=== PATIENT | female | born 1995 | race Caucasian/White ===

== ENCOUNTER 2016-08-03 15:49 | Emergency (ER) | payer SELFPAY ==
[2016-08-03 16:05] VITALS: BP 116/74
[2016-08-03] MEDS ORDERED: Sodium Chloride 0.9% 10 ML Syringe FLUSH PRN (16:23)
[2016-08-03] MEDS ORDERED: Sodium Chloride 0.9% 1,000 ML IV ONE (17:08)
[2016-08-03] MEDS ORDERED: HYDROmorphone 0.5 MG/0.5 ML Syringe IVPUSH ONE (17:27)
[2016-08-03] MEDS ORDERED: Ondansetron 4 MG/2 ML SDV IVPUSH ONE (17:27)
[2016-08-03] MEDS ORDERED: diphenhydrAMINE 50 MG/ML SDV IVPUSH ONE (17:54)
[2016-08-03] MEDS ORDERED: methylPREDNISolone Sodium Succinate 125 MG/2 ML SDV IVPUSH ONE (17:55)
[2016-08-03] MEDS ORDERED: diphenhydrAMINE 50 MG/ML SDV ONE (17:57)
--- NOTE | 2016-08-03 18:25 | EDM.PDOC ---
ED HPI GENERAL MEDICAL PROBLEM - General Chief Complaint: Respiratory Problem Stated Complaint: SOB Time Seen by Provider: 08/03/16 16:05 Source of Information: Reports: Patient, Family History Limitations: Reports: No Limitations - History of Present Illness INITIAL COMMENTS - FREE TEXT/NARRATIVE: The patient presents with chest pain and shortness of breath. She says this all started about 1 week ago. She has a dental infection. She saw her dentist and was put on amoxicillin. She did not start it yet because of financial issues. She has chills but no fever. She has some nausea but no vomiting My nurse says she was hyperventilating when she was talking to her and she had to talk her down. She has no history of DVTs or PEs. She has had trouble with the tooth in the left upper jaw before and amoxicillin helped. Onset: Gradual Duration: Week(s): (1) Location: Reports: Face, Chest Quality: Reports: Sharp Severity: Moderate Improves with: Reports: None Worsens with: Reports: None Associated Symptoms: Reports: Chest Pain, Fever/Chills, Nausea/Vomiting, Shortness of Breath. Denies: Cough Chest Pain Score (Numeric/FACES): 8 - Related Data Allergies Allergy/AdvReac Type Severity Reaction Status Date / Time hydromorphone [From Dilaudid] Allergy Shortness Verified 08/03/16 16:05 of Breath Home Meds: Home Meds Hydrocodone/Acetaminophen [Hydrocodon-Acetaminophen 5-325] 1 - 2 each PO Q6HR PRN #20 tablet 08/03/16 [Rx] Penicillin V Potassium 500 mg PO Q6HR #40 tab 08/03/16 [Rx] Past Medical History - Past Health History Medical/Surgical History: Denies Medical/Surgical History Social & Family History - Tobacco Use Smoking Status *Q: Current Every Day Smoker Years of Tobacco use: 5 Packs/Tins Daily: 0.2 - Caffeine Use Caffeine Use: Reports: None - Recreational Drug Use Recreational Drug Use: No ED ROS GENERAL - Review of Systems Review Of Systems: See Below Constitutional: Reports: Chills, Weakness. Denies: Fever HEENT: Reports: Dental Pain Respiratory: Reports: Shortness of Breath. Denies: Cough Cardiovascular: Reports: Chest Pain Endocrine: Reports: No Symptoms GI/Abdominal: Reports: No Symptoms : Reports: No Symptoms Musculoskeletal: Reports: No Symptoms Skin: Reports: No Symptoms ED EXAM, GENERAL - Physical Exam Exam: See Below Exam Limited By: No Limitations General Appearance: Alert, No Apparent Distress Ears: Normal External Exam Nose: Normal Inspection Throat/Mouth: Other (Pain upon palpation to the left upper jaw line. She has a fractured premolar in that area with erythema and edema.) Head: Atraumatic, Normocephalic Neck: Normal Inspection Respiratory/Chest: No Respiratory Distress, Lungs Clear, Normal Breath Sounds Cardiovascular: Regular Rate, Rhythm, No Edema, No Murmur GI/Abdominal: Soft, Non-Tender, No Organomegaly, No Mass Back Exam: Normal Inspection Extremities: Normal Inspection Neurological: Alert, Oriented, No Motor/Sensory Deficits EKG INTERPRETATION EKG Date: 08/03/16 Time: 16:31 Rhythm: NSR Rate (beats/min): 88 [place]: normal P-wave: present QRS: normal ST-T: normal QT: normal Course - Vital Signs Last Recorded V/S: Last Vital Signs Temp 98.7 F 08/03/16 16:02 Pulse 91 08/03/16 16:02 Resp 26 H 08/03/16 16:02 BP 116/74 08/03/16 16:02 Pulse Ox 99 08/03/16 16:02 Orthostatic Blood Pressure [ 108/78 Standing] Orthostatic Blood Pressure [ 116/92 Sitting] Orthostatic Blood Pressure [ 114/69 Supine] - Orders/Labs/Meds Orders: Active Orders 24 hr Category Date Time Status Cardiac Monitoring [RC] . DIRECTED Care 08/03/16 16:23 Active EKG Documentation Completion [RC] STAT Care 08/03/16 16:23 Active Peripheral IV Care [RC] . DIRECTED Care 08/03/16 16:23 Active Chest 2V [CR] Stat Exams 08/03/16 16:23 Taken Sodium Chloride 0.9% [Saline Flush] Med 08/03/16 16:23 Active 10 ml FLUSH ASDIRECTED PRN cefTRIAXone [Rocephin] 2 gm Med 08/03/16 18:50 Active Sodium Chloride 0.9% [Normal Saline] 100 ml IV ONETIME Peripheral IV Insertion Adult [OM.PC] Stat Oth 08/03/16 16:23 Ordered Medication Orders Ceftriaxone Sodium 2 gm/ (Sodium Chloride) 100 mls @ 200 mls/hr IV ONETIME ONE Stop: 08/03/16 19:19 Sodium Chloride (Saline Flush) 10 ml FLUSH ASDIRECTED PRN PRN Reason: Keep Vein Open Last Admin: 08/03/16 17:24 Dose: 10 ml Labs: Laboratory Tests 08/03/16 08/03/16 08/03/16 Range/Units 16:36 16:36 16:36 WBC 8.60 (3.98-10.04) K/mm3 RBC 4.44 (3.98-5.22) M/mm3 Hgb 13.8 (11.2-15.7) gm/L Hct 40.9 (34.1-44.9) % MCV 92.1 (79.4-94.8) fl MCH 31.1 (25.6-32.2) pg MCHC 33.7 (32.2-35.5) g/dl RDW Std Deviation 45.8 (36.4-46.3) fL Plt Count 275 (182-369) K/mm3 MPV 9.8 (9.4-12.3) fl Neut % (Auto) 66.2 (34.0-71.1) % Lymph % (Auto) 24.3 (19.3-51.7) % Mower % (Auto) 7.1 (4.7-12.5) % Eos % (Auto) 2.1 (0.7-5.8) Baso % (Auto) 0.2 (0.1-1.2) % Neut # (Auto) 5.69 (1.56-6.13) K/mm3 Lymph # (Auto) 2.09 (1.18-3.74) K/mm3 Mower # (Auto) 0.61 H (0.24-0.36) K/mm3 Eos # (Auto) 0.18 (0.04-0.36) K/mm3 Baso # (Auto) 0.02 (0.01-0.08) K/mm3 D-Dimer, Quantitative 0.24 (0.19-0.59) mg/L Sodium 145 (136-145) mEq/L Potassium 3.9 (3.5-5.1) mEq/L Chloride 107 (98-107) mEq/L Carbon Dioxide 25 (21-32) mEq/L Anion Gap 16.9 H (5-15) BUN 10 (7-18) mg/dL Creatinine 0.8 (0.55-1.02) mg/dL Est Cr Clr Drug Dosing 79.90 mL/min Estimated GFR (MDRD) > 60 (>60) mL/min BUN/Creatinine Ratio 12.5 L (14-18) Glucose 114 H (74-106) mg/dL Calcium 9.6 (8.5-10.1) mg/dL Total Bilirubin 0.3 (0.2-1.0) mg/dL AST 13 L (15-37) U/L ALT 25 (14-59) U/L Alkaline Phosphatase 91 (46-116) U/L Troponin I < 0.017 (0.00-0.056) ng/mL Total Protein 7.9 (6.4-8.2) g/dl Albumin 4.3 (3.4-5.0) g/dl Globulin 3.6 gm/dL Albumin/Globulin Ratio 1.2 (1-2) HCG, Qual (NEGATIVE) 08/03/16 Range/Units 16:36 WBC (3.98-10.04) K/mm3 RBC (3.98-5.22) M/mm3 Hgb (11.2-15.7) gm/L Hct (34.1-44.9) % MCV (79.4-94.8) fl MCH (25.6-32.2) pg MCHC (32.2-35.5) g/dl RDW Std Deviation (36.4-46.3) fL Plt Count (182-369) K/mm3 MPV (9.4-12.3) fl Neut % (Auto) (34.0-71.1) % Lymph % (Auto) (19.3-51.7) % Mower % (Auto) (4.7-12.5) % Eos % (Auto) (0.7-5.8) Baso % (Auto) (0.1-1.2) % Neut # (Auto) (1.56-6.13) K/mm3 Lymph # (Auto) (1.18-3.74) K/mm3 Mower # (Auto) (0.24-0.36) K/mm3 Eos # (Auto) (0.04-0.36) K/mm3 Baso # (Auto) (0.01-0.08) K/mm3 D-Dimer, Quantitative (0.19-0.59) mg/L Sodium (136-145) mEq/L Potassium (3.5-5.1) mEq/L Chloride (98-107) mEq/L Carbon Dioxide (21-32) mEq/L Anion Gap (5-15) BUN (7-18) mg/dL Creatinine (0.55-1.02) mg/dL Est Cr Clr Drug Dosing mL/min Estimated GFR (MDRD) (>60) mL/min BUN/Creatinine Ratio (14-18) Glucose (74-106) mg/dL Calcium (8.5-10.1) mg/dL Total Bilirubin (0.2-1.0) mg/dL AST (15-37) U/L ALT (14-59) U/L Alkaline Phosphatase (46-116) U/L Troponin I (0.00-0.056) ng/mL Total Protein (6.4-8.2) g/dl Albumin (3.4-5.0) g/dl Globulin gm/dL Albumin/Globulin Ratio (1-2) HCG, Qual Negative (NEGATIVE) Meds: Medications Generic Name Dose Route Start Last Admin Trade Name Freq PRN Reason Stop Dose Admin Ceftriaxone Sodium 2 gm/ 100 mls @ 200 mls/hr 08/03/16 18:50 Sodium Chloride IV 08/03/16 19:19 ONETIME ONE Sodium Chloride 10 ml 08/03/16 16:23 08/03/16 17:24 Saline Flush FLUSH 10 ml ASDIRECTED PRN Administration Keep Vein Open Discontinued Medications Generic Name Dose Route Start Last Admin Trade Name Freq PRN Reason Stop Dose Admin Diphenhydramine HCl 50 mg 08/03/16 17:54 08/03/16 17:55 Benadryl IVPUSH 08/03/16 17:55 50 mg ONETIME ONE Administration Diphenhydramine HCl Confirm 08/03/16 17:57 08/03/16 18:12 Benadryl Administered 08/03/16 17:58 Not Given Dose 100 mg .ROUTE .STK-MED ONE Fentanyl 100 mcg 08/03/16 18:51 Sublimaze IVPUSH 08/03/16 18:52 ONETIME ONE Hydromorphone HCl 0.5 mg 08/03/16 17:27 08/03/16 17:52 Dilaudid IVPUSH 08/03/16 17:28 0.5 mg ONETIME ONE Administration Sodium Chloride 1,000 mls @ 1,000 mls/hr 08/03/16 17:08 08/03/16 17:24 Normal Saline IV 08/03/16 18:07 1,000 mls/hr ONETIME ONE Administration Methylprednisolone Sodium Succinate 125 mg 08/03/16 17:55 08/03/16 18:00 Solu-Medrol IVPUSH 08/03/16 17:56 125 mg ONETIME ONE Administration Ondansetron HCl 4 mg 08/03/16 17:27 08/03/16 17:50 Zofran IVPUSH 08/03/16 17:28 4 mg ONETIME ONE Administration - Re-Assessments/Exams Free Text/Narrative Re-Assessment/Exam: 08/03/16 18:28 I ordered an IV saline lock, EKG, CXR and labs. The patient wanted something for pain and nausea. I ordered zofran 4 mg IV and dilaudid 1mg IV. I did not see that the patient was allergic to dilaudid. She became more short of breath with it so I ordered some benadryl 50mg IV and solu-medrol 125mg IV. Her CBC and CMP look good. Her troponin is negative along with her HCG and D-dimer. She is feeling better now. Her CXR looks good. 08/03/16 18:54 I feel what is going on may be related to her dental abscess. I have ordered rocephin 2 grams IV and some fentanyl for pain. She has no money for the amoxicillin she was prescribed or for the pain meds. We will try to get her some money to help. Departure - Departure Time of Disposition: 19:00 Disposition: Home, Self-Care 01 Condition: good Clinical Impression: Dental abscess, Pain, dental Chest pain Qualifiers: Chest pain type: unspecified Qualified Code(s): R07.9 - Chest pain, unspecified Dyspnea Qualifiers: Dyspnea type: unspecified Qualified Code(s): R06.00 - Dyspnea, unspecified - Discharge Information Prescriptions: Hydrocodone/Acetaminophen [Hydrocodon-Acetaminophen 5-325] 1 - 2 each PO Q6HR PRN #20 tablet PRN Reason: Pain Penicillin V Potassium 500 mg PO Q6HR #40 tab Forms: ED Department Discharge Additional Instructions: Take the medications as prescribed. Please return if you are worse. - My Orders Last 24 Hours: My Active Orders 08/03/16 16:23 Cardiac Monitoring [RC] . DIRECTED EKG Documentation Completion [RC] STAT Peripheral IV Care [RC] . DIRECTED Chest 2V [CR] Stat Sodium Chloride 0.9% [Saline Flush] 10 ml FLUSH ASDIRECTED PRN Peripheral IV Insertion Adult [OM.PC] Stat 08/03/16 18:50 cefTRIAXone [Rocephin] 2 gm Sodium Chloride 0.9% [Normal Saline] 100 ml IV ONETIME - Assessment/Plan Last 24 Hours: My Active Orders 08/03/16 16:23 Cardiac Monitoring [RC] . DIRECTED EKG Documentation Completion [RC] STAT Peripheral IV Care [RC] . DIRECTED Chest 2V [CR] Stat Sodium Chloride 0.9% [Saline Flush] 10 ml FLUSH ASDIRECTED PRN Peripheral IV Insertion Adult [OM.PC] Stat 08/03/16 18:50 cefTRIAXone [Rocephin] 2 gm Sodium Chloride 0.9% [Normal Saline] 100 ml IV ONETIME
[2016-08-03] MEDS ORDERED: cefTRIAXone 2 GM in Sodium Chloride 0.9% 100 ML IV ONE (18:50)
[2016-08-03] MEDS ORDERED: fentaNYL 100 MCG/2 ML SDV IVPUSH ONE (18:51)
--- NOTE | 2016-08-04 12:56 | CR ---
Chest: Two views of the chest were obtained. Comparison: No previous chest x-ray. Heart size and mediastinum are normal. Lungs are clear. Minimal scoliosis is noted within the spine. Impression: 1. Nothing acute is identified on two-view chest x-ray. Diagnostic code #1
== END 2016-08-03 19:48 | disposition home or self-care (01) ==
LOC: JD.ED 15:49
DX: R06.00 Dyspnea, unspecified (principal); R07.9 Chest pain, unspecified; K04.7 Periapical abscess without sinus; F17.210 Nicotine dependence, cigarettes, uncomplicated; Z88.5 Allergy status to narcotic agent
CPT/HCPCS: 36415; 71020; 80053; 84484; 84703; 85025; 85379; 93005; 96361; 96365; 96375; 99285; J0696; J1170; J1200; J2405; J2930; J3010; J7030; J7040; J7050; 99284

== ENCOUNTER 2017-01-01 09:59 | Emergency (ER) | payer BC ==
[2017-01-01 10:10] VITALS: BP 122/80
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
[2017-01-01] MEDS ORDERED: Acetaminophen 325 MG Tab PO ONE (11:41)
--- NOTE | 2017-01-01 11:52 | US ---
Obstetrical ultrasound: Multiple real-time images were obtained transvaginally. Comparison: No prior study is available. Dates: LMP: LMP given as 11/22/16, DARBY 08/29/17, gestational age 5 weeks 5 days Current ultrasound: DARBY 09/01/17, gestational age 5 weeks 2 days Single intrauterine gestational sac is seen. Yolk sac and very small pole is identified. No subchorionic hemorrhage is seen. Maternal ovaries are seen and appear within normal limits. There is some free fluid being seen within the pelvis which is likely physiologic. Dates: Mean sac diameter: 0.74 cm - 5 weeks 2 days Impression: 1. Single intrauterine gestation. Dates as noted above. 2. No heart activity is seen which likely relates to early gestational age of the . Follow-up could be considered in 11 days to confirm normal developing embryo. 3. Small amount of free fluid within the pelvis believed to be physiologic. Diagnostic code #2
== END 2017-01-01 12:25 | disposition home or self-care (01) ==
LOC: JD.ED 09:59
DX: O99.89 Other specified diseases and conditions complicating pregnancy, childbirth and the puerperium (principal); R10.84 Generalized abdominal pain; F32.9 Major depressive disorder, single episode, unspecified; F17.210 Nicotine dependence, cigarettes, uncomplicated; Z79.899 Other long term (current) drug therapy; Z88.5 Allergy status to narcotic agent; Z3A.01 Less than 8 weeks gestation of pregnancy
CPT/HCPCS: 36415; 76817; 80053; 81001; 84702; 84703; 85025; 86900; 86901; 99284; A9270; 99283

== ENCOUNTER 2017-02-16 17:57 | Emergency (ER) | payer BC, OTHER ==
--- NOTE | 2017-02-16 18:10 | EDM.PDOC ---
ED HPI GENERAL MEDICAL PROBLEM - General Chief Complaint: ENT Problem Stated Complaint: ABCESS ON ROOF OF MOUTH Time Seen by Provider: 02/16/17 18:10 Source of Information: Reports: Patient - History of Present Illness INITIAL COMMENTS - FREE TEXT/NARRATIVE: Patient is here today due to pain and swelling to the roof of her mouth. She states that she now she has broken teeth on the side, she is currently 12 weeks so dentist will not remove this tooth. Patient reports significant pain and is having difficulty eating and sleeping. Patient does have history of Dilaudid allergy, has taken hydrocodone in the past without difficulty. Oral/Mouth Pain Score (Numeric/FACES): 9 - Related Data Allergies Allergy/AdvReac Type Severity Reaction Status Date / Time hydromorphone [From Dilaudid] Allergy Shortness Verified 01/01/17 10:10 of Breath Home Meds: Home Meds Acetaminophen/Diphenhydramine [Tylenol Pm Ex-Strength Caplet] 1 tab PO BEDTIME 01/01/17 [History] Amoxicillin/Clavulanate K [Augmentin 875 MG/125 MG] 1 tab PO Q12HR #20 tablet [Rx] Iron 50 mg PO DAILY 02/16/17 [History] Lidocaine 2% [Xylocaine 2% Viscous] 5 ml PO ASDIRECTED PRN #100 ml 02/16/17 [Rx] PNV95/Ferrous Fumarate/FA [ Tablet] 1 tab PO DAILY 02/16/17 [History] oxyCODONE 5 mg PO Q8H PRN #10 tablet 02/16/17 [Rx] Past Medical History - Past Health History Medical/Surgical History: Denies Medical/Surgical History Genitourinary History: Reports: Other (See Below) Other Genitourinary History: "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 Denies: Fever, Chills HEENT: Reports: Other (Dental pain, swelling to roof of her mouth. ) Respiratory: Reports: No Symptoms Cardiovascular: Reports: No Symptoms Skin: Reports: No Symptoms Psychiatric: Reports: Anxiety ED EXAM, ENT - Physical Exam Exam: See Below Exam Limited By: No Limitations General Appearance: Alert, WD/WN, Anxious Mouth/Throat: Dental Abcess (Swelling to left posterior inner gumline. This is not fluctuant. ), Dental Pain, Dental Tenderness, Gum Swelling, Other (Very poor dentition, multiple caries and fillings. Teeth #13/14 broken. ). No: Dental Trauma Neck: Normal Inspection. No: Lymphadenopathy (L), Lymphadenopathy (R) Respiratory/Chest: No Respiratory Distress, Lungs Clear, Normal Breath Sounds, No Accessory Muscle Use Cardiovascular: Normal Peripheral Pulses, Regular Rate, Rhythm, No Murmur Neurological: Alert, Oriented Psychiatric: Normal Affect, Anxious Skin: Warm, Dry Course - Vital Signs Last Recorded V/S: Last Vital Signs Temp 97.1 F 02/16/17 18:08 Pulse 115 H 02/16/17 18:08 Resp 20 02/16/17 18:08 BP 122/108 H 02/16/17 18:08 Pulse Ox 100 02/16/17 18:08 - Orders/Labs/Meds Meds: Medications Discontinued Medications Generic Name Dose Route Start Last Admin Trade Name Franciscoq PRN Reason Stop Dose Admin Ceftriaxone Sodium 1 gm 02/16/17 18:25 02/16/17 18:43 Rocephin IM 02/16/17 18:26 1 gm ONETIME ONE Administration Oxycodone/Acetaminophen 1 tab 02/16/17 18:34 02/16/17 18:45 Percocet 325-5 Mg PO 02/16/17 18:35 1 tab ONETIME ONE Administration - Re-Assessments/Exams Free Text/Narrative Re-Assessment/Exam: Obvious dental abscess adjacent to broken teeth. This is very firm, do not feel there is a fluid collection to drain at this point. Patient unable to purchase PO antibiotics tonight due to finances, will give Rocephin injection. Patient 12 weeks and allergic to dilaudid. 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 She is requesting pain medication. Options discussed with Dr Pierre Oliver, will give 5mg PO oxycodone and monitor. 02/16/17 18:53 Patient having good improvement in pain with oxycodone, no side effect from this. She is requesting to be discharged. Will monitor for a few more minutes (total of 45 from when she had the medication) and if still not having side effect will discharge. Will discharge with Augmentin that she will pickle pumper tomorrow as well as just a few oxycodone. Trial lidocaine for pain as well. As she is in second trimester can also use ibuprofen as needed for pain. She will FU next week with dentist/PCP or return to ER if needed. 02/16/17 19:23 Departure - Departure Time of Disposition: 19:36 Disposition: Home, Self-Care 01 Condition: Good Clinical Impression: Dental abscess - Discharge Information Prescriptions: Amoxicillin/Clavulanate K [Augmentin 875 MG/125 MG] 1 tab PO Q12HR #20 tablet Lidocaine 2% [Xylocaine 2% Viscous] 5 ml PO ASDIRECTED PRN #100 ml PRN Reason: Pain oxyCODONE 5 mg PO Q8H PRN #10 tablet PRN Reason: Pain Referrals: Deepali Cee MD [Primary Care Provider] - Forms: ED Department Discharge Additional Instructions: Take full course of antibiotics, recommend probiotic or 2 yogurts daily with this to prevent diarrhea. Ibuprofen 800mg TID. Oxycodone for breakthrough pain. Follow-up with your dentist next week or PCP if this isn't possible. Certainly return to ER if needed.
[2017-02-16] MEDS ORDERED: cefTRIAXone 1 GM Vial IM ONE (18:25)
[2017-02-16] MEDS ORDERED: Acetaminophen/oxyCODONE 325-5 MG Tab PO ONE (18:34)
[2017-02-16 19:43] VITALS: BP 114/79
== END 2017-02-16 20:10 | disposition home or self-care (01) ==
LOC: JD.ED 17:57
DX: K04.7 Periapical abscess without sinus (principal); Z88.6 Allergy status to analgesic agent; Z79.899 Other long term (current) drug therapy; F17.210 Nicotine dependence, cigarettes, uncomplicated
CPT/HCPCS: 96372; 99283; A9270; J0696

== ENCOUNTER 2017-08-06 12:16 | Inpatient (IN) | payer BC ==
[2017-08-06] MEDS ORDERED: Benzocaine/Menthol 20%-0.5% Spray 56 GM Canister TOP PRN (12:25)
[2017-08-06] MEDS ORDERED: Witch Hazel Medicated Pads 100/Jar TOP PRN (12:25)
[2017-08-06] MEDS ORDERED: Docusate Sodium 100 MG Cap PO PRN (12:25)
[2017-08-06] MEDS ORDERED: Lanolin 100% Cream 7 GM Tube TOP PRN (12:25)
[2017-08-06] MEDS ORDERED: Oxytocin/Lactated Ringers 10 UNIT/1,000 ML BAG IV SCH (12:30)
--- NOTE | 2017-08-06 12:30 | PCM.LDHP ---
L&D History of Present Illness - General Date of Service: 08/06/17 Admit Problem/Dx: Patient Status Order with Admit Dx/Problem 08/06/17 12:27 Patient Status [ADT] Routine Admission Diagnosis/Problem Admission Diagnosis/Problem Vaginal delivery Source of Information: Patient History Limitations: Reports: No Limitations - History of Present Illness Introduction:: Patient is a 21 y/o G6 now P1323 PPD#0 from at 36 0/7 wks. Patient has been admitted multiple times for concerns of contractions. This morning felt contractions really started to strengthen. Called for ambulance assistance from [facility] at 1112 [place] time. Was en route to [facility] when delivery occurred at 1131 with ambulance crew assisting. Placenta reportedly delivered within about 5 minutes. [facility] ambulance intercepted by [facility] ambulance crew at about 1142. Both units then made way to [facility]. She is currently doing well. Having some cramping. No other complaints. 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 2012 - 35 wk PTL. 2012 - . 2014 - 38 wk . 2016 - . 2018 - 36 wk Psychiatric History: Reports: Addiction, Anxiety, Depression - Past Surgical History Female Surgical History: Reports: D&C Social & Family History - Family History Family Medical History: Noncontributory - Tobacco Use Smoking Status *Q: Current Every Day Smoker - Caffeine Use Caffeine Use: Reports: Coffee, Soda, Tea Caffeine Use Comment: Coffee daily, soda every other day, tea sometimes. 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.) Occupation: Unemployed H&P Review of Systems - Review of Systems: Review Of Systems: See Below General: Reports: No Symptoms Cardiovascular: Reports: No Symptoms Gastrointestinal: Reports: No Symptoms Genitourinary: Reports: No Symptoms Musculoskeletal: Reports: No Symptoms Psychiatric: Reports: No Symptoms Neurological: Reports: No Symptoms L&D Exam - Exam Exam: See Below - Exam General: Alert, Oriented, Cooperative Lungs: Clear to Auscultation, Normal Respiratory Effort Cardiovascular: Regular Rate, Regular Rhythm GI/Abdominal Exam: Soft, Non-Tender Genitourinary: Normal external exam Extremities: Normal Inspection - Problem List (1) 36 weeks gestation of SNOMED Code(s): 39128174 ICD Code: Z3A.36 - 36 WEEKS GESTATION OF Status: Acute Current Visit: Yes (2) delivery SNOMED Code(s): 683952128, 839679902 ICD Code: O60.10X0 - LABOR W DELIVERY, UNSP TRIMESTER, UNSP Status: Acute Current Visit: Yes Problem List Initiated/Reviewed/Updated: Yes Orders Last 24hrs: Active Orders 24 hr Category Date Time Status Patient Status [ADT] Routine ADT 08/06/17 12:27 Ordered Activity as Tolerated [RC] PER UNIT ROUTINE Care 08/06/17 12:27 Ordered Vital Signs [RC] ASDIRECTED Care 08/06/17 12:27 Ordered Regular Diet [DIET] Diet 08/06/17 Lunch Ordered RAPID PLASMA REAGIN,RPR [CHEM] Routine Lab 08/06/17 12:25 Ordered Benzocaine/Menthol [Dermoplast Pain Relief [place]] Med 08/06/17 12:25 Ordered See Dose Instructions TOP ASDIRECTED PRN Docusate Sodium [Colace] Med 08/06/17 12:25 Ordered 100 mg PO BID PRN Lanolin [Lansinoh HPA] Med 08/06/17 12:25 Ordered See Dose Instructions TOP ASDIRECTED PRN Oxytocin/Lactated Ringers [Pitocin in LR 10 Units/1,000 Med 08/06/17 12:30 Ordered ML] 10 unit in 1,000 ml IV TITRATE Witch Celi [Tucks] Med 08/06/17 12:25 Ordered 1 pad TOP ASDIRECTED PRN Assess Lochia [WOMSER] Per Unit Routine Oth 08/06/17 12:27 Ordered Assess Uterine Involution [WOMSER] Per Unit Routine Oth 08/06/17 12:27 Ordered Breast Pump [WOMSER] Per Unit Routine Oth 08/06/17 12:27 Ordered Heat Therapy [OM.PC] PRN Oth 08/06/17 12:30 Ordered Heat Therapy [OM.PC] PRN Oth 08/07/17 12:30 Ordered Ice Therapy [OM.PC] Per Unit Routine Oth 08/06/17 12:28 Ordered Perineal Care [OM.PC] Per Unit Routine Oth 08/06/17 12:27 Ordered Peripheral IV Discontinue [OM.PC] Routine Oth 08/06/17 12:28 Ordered Sitz Bath [OM.PC] Per Unit Routine Oth 08/06/17 12:27 Ordered Resuscitation Status Routine Resus Stat 08/06/17 12:25 Ordered Assessment/Plan Comment:: 21 y/o G6 now P1323 PPD#0 from at 36 0/7 wks * Last note from [facility] shows patient with signs of gestational HTN. Will order baseline labs here today * RPR per new protocol for repeat testing at time of delivery * Routine cares * Discharge home in 2 days
[2017-08-06] MEDS ORDERED: Oxytocin/Lactated Ringers 20 UNIT/1,000 ML BAG IV ONE (12:33)
[2017-08-06] MEDS: Ibuprofen 600 MG Tab PO PRN (13:00)
--- NOTE | 2017-08-07 07:02 | PCM.PNPP ---
- General Info Date of Service: 08/07/17 Functional Status: Reports: Pain Controlled, Tolerating Diet, Ambulating, Urinating - Review of Systems General: Reports: No Symptoms Pulmonary: Reports: No Symptoms Cardiovascular: Reports: No Symptoms Gastrointestinal: Reports: No Symptoms Genitourinary: Reports: No Symptoms Musculoskeletal: Reports: No Symptoms Neurological: Reports: No Symptoms - Patient Data Vital Signs - Most Recent: Last Vital Signs Temp 36.7 C 08/06/17 21:25 Pulse 100 08/06/17 21:25 Resp 16 08/06/17 17:17 BP 142/85 H 08/06/17 21:25 Pulse Ox 98 08/06/17 21:25 Weight - Most Recent: 78.471 kg I&O - Last 24 Hours: Intake & Output 08/06/17 08/07/17 08/07/17 22:59 06:59 14:59 Intake Total 1800 Balance 1800 Lab Results - Last 24 Hours: Laboratory Results - last 24 hr 08/06/17 08/06/17 08/06/17 Range/Units 13:13 13:13 13:13 WBC 17.75 H (3.98-10.04) K/mm3 RBC 3.34 L (3.98-5.22) M/mm3 Hgb 11.1 L (11.2-15.7) gm/L Hct 33.6 L (34.1-44.9) % MCV 100.6 H (79.4-94.8) fl MCH 33.2 H (25.6-32.2) pg MCHC 33.0 (32.2-35.5) g/dl RDW Std Deviation 53.1 H (36.4-46.3) fL Plt Count 281 (182-369) K/mm3 MPV 9.4 (9.4-12.3) fl Creatinine 0.7 (0.55-1.02) mg/dL Est Cr Clr Drug Dosing 90.55 mL/min Estimated GFR (MDRD) > 60 (>60) mL/min AST 12 L (15-37) U/L ALT 9 L (14-59) U/L RPR Non-reactive (NONREACTIVE) Med Orders - Current: Current Medications Benzocaine/Menthol (Dermoplast Pain Relief [place]) 0 gm TOP ASDIRECTED PRN PRN Reason: Perineal Comfort Measure Docusate Sodium (Colace) 100 mg PO BID PRN PRN Reason: Constipation Emollient Ointment (Lansinoh Hpa) 0 gm TOP ASDIRECTED PRN PRN Reason: Sore Nipples Oxytocin/Lactated Ringer's (Pitocin In Lr 10 Units/1,000 Ml) 10 unit in 1,000 mls @ 500 mls/hr IV TITRATE SARBJIT; Protocol Ibuprofen (Motrin) 600 mg PO Q6H PRN PRN Reason: Pain Last Admin: 08/06/17 13:00 Dose: 600 mg Witch Celi (Tucks) 1 pad TOP ASDIRECTED PRN PRN Reason: Hemorrhoid pain Discontinued Medications Oxytocin/Lactated Ringer's (Pitocin In Lr 20 Units/1,000 Ml) Confirm Administered Dose 20 unit in 1,000 mls @ as directed IV .STK-MED ONE Stop: 08/06/17 12:34 Last Admin: 08/06/17 12:36 Dose: 500 mls/hr - Infant Interaction Infant Disposition, : [place] in Room with Family Interaction: Holding Infant Infant Feeding: Attempted ; Nursed Fair/Poor Support Person: - Recovery Exam Fundal Tone: Firm Fundal Level: At Umbilicus Fundal Placement: Midline Lochia Amount: Scant Lochia Color: Rubra/Red Perineum Description: Intact, Minimal Bruising/Swelling Episiotomy/Laceration: Approximated Bladder Status: Voiding Urinary Elimination: Voided - Exam General: Alert, Oriented, Cooperative GI/Abdominal Exam: Soft, Non-Tender Extremities: Normal Inspection Skin: Warm, Dry, Intact - Problem List & Annotations (1) 36 weeks gestation of SNOMED Code(s): 07119429 Code(s): Z3A.36 - 36 WEEKS GESTATION OF Status: Acute Current Visit: Yes (2) delivery SNOMED Code(s): 711401365, 894311713 Code(s): O60.10X0 - LABOR W DELIVERY, UNSP TRIMESTER, UNSP Status: Acute Current Visit: Yes - Problem List Review Problem List Initiated/Reviewed/Updated: Yes - My Orders Last 24 Hours: My Active Orders 08/06/17 12:25 Benzocaine/Menthol [Dermoplast Pain Relief [place]] See Dose Instructions TOP ASDIRECTED PRN Docusate Sodium [Colace] 100 mg PO BID PRN Lanolin [Lansinoh HPA] See Dose Instructions TOP ASDIRECTED PRN Witch Celi [Tucks] 1 pad TOP ASDIRECTED PRN Resuscitation Status Routine 08/06/17 12:27 Patient Status [ADT] Routine Activity as Tolerated [RC] PER UNIT ROUTINE Vital Signs [RC] 03,09,15,21 Assess Lochia [WOMSER] Per Unit Routine Assess Uterine Involution [WOMSER] Per Unit Routine Breast Pump [WOMSER] Per Unit Routine Perineal Care [OM.PC] Per Unit Routine Sitz Bath [OM.PC] Per Unit Routine 08/06/17 12:28 Ice Therapy [OM.PC] Per Unit Routine Peripheral IV Discontinue [OM.PC] Routine 08/06/17 12:30 Oxytocin/Lactated Ringers [Pitocin in LR 10 Units/1,000 ML] 10 unit in 1,000 ml IV TITRATE Heat Therapy [OM.PC] PRN 08/06/17 12:49 Ibuprofen [Motrin] 600 mg PO Q6H PRN 08/06/17 Lunch Regular Diet [DIET] 08/07/17 12:30 Heat Therapy [OM.PC] PRN - Assessment Assessment:: 21 y/o G6 now P1323 PPD#1 from at 36 0/7 wks - Plan Plan:: * Routine care * Encourage breast feeding * Discharge home tomorrow
[2017-08-07] MEDS: Ibuprofen 600 MG Tab PO PRN ×2 (11:29→16:23)
[2017-08-07] MEDS ORDERED: Acetaminophen 325 MG Tab PO PRN (13:16)
--- NOTE | 2017-08-08 01:19 | PCM.PNPP ---
- General Info Date of Service: 08/08/17 Functional Status: Reports: Pain Controlled, Tolerating Diet, Ambulating, Urinating - Review of Systems General: Reports: No Symptoms Pulmonary: Reports: No Symptoms Cardiovascular: Reports: No Symptoms Gastrointestinal: Reports: No Symptoms Genitourinary: Reports: No Symptoms Musculoskeletal: Reports: Back Pain - Patient Data Vital Signs - Most Recent: Last Vital Signs Temp 36.3 C 08/07/17 20:03 Pulse 115 H 08/07/17 20:03 Resp 16 08/07/17 20:03 BP 135/77 08/07/17 20:03 Pulse Ox 99 08/07/17 20:03 Weight - Most Recent: 78.471 kg I&O - Last 24 Hours: Intake & Output 08/07/17 08/07/17 08/08/17 14:59 22:59 06:59 Intake Total 360 480 Balance 360 480 Med Orders - Current: Current Medications Acetaminophen (Tylenol) 650 mg PO Q4H PRN PRN Reason: PAIN Last Admin: 08/07/17 13:44 Dose: 650 mg Benzocaine/Menthol (Dermoplast Pain Relief [place]) 0 gm TOP ASDIRECTED PRN PRN Reason: Perineal Comfort Measure Docusate Sodium (Colace) 100 mg PO BID PRN PRN Reason: Constipation Emollient Ointment (Lansinoh Hpa) 0 gm TOP ASDIRECTED PRN PRN Reason: Sore Nipples Last Admin: 08/07/17 11:28 Dose: 1 applicful Oxytocin/Lactated Ringer's (Pitocin In Lr 10 Units/1,000 Ml) 10 unit in 1,000 mls @ 500 mls/hr IV TITRATE SARBJIT; Protocol Ibuprofen (Motrin) 600 mg PO Q6H PRN PRN Reason: Pain Last Admin: 08/07/17 16:23 Dose: 600 mg Witch Celi (Tucks) 1 pad TOP ASDIRECTED PRN PRN Reason: Hemorrhoid pain Discontinued Medications Oxytocin/Lactated Ringer's (Pitocin In Lr 20 Units/1,000 Ml) Confirm Administered Dose 20 unit in 1,000 mls @ as directed IV .STK-MED ONE Stop: 08/06/17 12:34 Last Admin: 08/06/17 12:36 Dose: 500 mls/hr - Interaction Infant Disposition, : in Room with Family Interaction: Holding Infant Feeding: Attempted ; Nursed Fair/Poor Support Person: - Recovery Exam Fundal Tone: Firm Fundal Level: 1 Fingerbreadths Below Umbilicus Fundal Placement: Midline Lochia Amount: Scant Lochia Color: Rubra/Red Perineum Description: Intact, Minimal Bruising/Swelling Episiotomy/Laceration: None Bladder Status: Voiding Urinary Elimination: Voided - Exam General: Alert, Oriented, Cooperative GI/Abdominal Exam: Soft, Non-Tender Extremities: Normal Inspection Skin: Warm, Dry, Intact - Problem List & Annotations (1) 36 weeks gestation of SNOMED Code(s): 64778792 Code(s): Z3A.36 - 36 WEEKS GESTATION OF Status: Acute Current Visit: Yes (2) delivery SNOMED Code(s): 567268068, 409932785 Code(s): O60.10X0 - LABOR W DELIVERY, UNSP TRIMESTER, UNSP Status: Acute Current Visit: Yes - Problem List Review Problem List Initiated/Reviewed/Updated: Yes - My Orders Last 24 Hours: My Active Orders 08/07/17 12:30 Heat Therapy [OM.PC] PRN 08/07/17 13:16 Acetaminophen [Tylenol] 650 mg PO Q4H PRN - Assessment Assessment:: 21 y/o G6 now P1323 PPD#2 from at 36 0/7 wks - Plan Plan:: * Routine care * Encourage breast feeding * Discharge home today
--- NOTE | 2017-08-08 01:22 | PCM.DCSUM1 ---
Discharge Summary - Discharge Data Discharge Date: 08/08/17 Discharge Disposition: Home, Self-Care 01 Condition: Good - Discharge Diagnosis/Problem(s) (1) 36 weeks gestation of SNOMED Code(s): 74473840 ICD Code: Z3A.36 - 36 WEEKS GESTATION OF Status: Acute Current Visit: Yes (2) delivery SNOMED Code(s): 617705248, 457480713 ICD Code: O60.10X0 - LABOR W DELIVERY, UNSP TRIMESTER, UNSP Status: Acute Current Visit: Yes - Patient Summary/Data Complications: None Consults: None Recommended Follow-up Testing/Procedures: Follow up in 2-4 weeks for check with Dr. Barillas Hospital Course: Patient is a 21 y/o admitted after delivery in ambulance en route to hospital at 36 0/7 wks. See H&P for full details/timeline. she did well. Was discharged home on PPD#2 - Patient Instructions Diet: Regular Diet as Tolerated Activity: As Tolerated Activity, Other: Pelvic rest for 6 weeks Driving: May Drive Today Showering/Bathing: May Shower Showering/Bathing, Other: May Bathe Notify Provider of: Fever, Increased Pain, Swelling and Redness, Drainage, Nausea and/or Vomiting - Discharge Plan Home Medications: Home Meds PNV95/Ferrous Fumarate/FA [ Tablet] 1 tab PO DAILY 02/16/17 [History] Docusate Sodium [Colace] 100 mg PO BID PRN cap 08/07/17 [Rx] Ibuprofen [Motrin] 600 mg PO Q6H PRN tablet 08/07/17 [Rx] Patient Handouts: Steps to Quit Smoking Referrals: Salma Barillas MD [Ordering Only Provider] - (2-6 weeks for check ) - Discharge Summary/Plan Comment DC Time >30 min.: No - Patient Data Vitals - Most Recent: Last Vital Signs Temp 36.3 C 08/07/17 20:03 Pulse 115 H 08/07/17 20:03 Resp 16 08/07/17 20:03 BP 135/77 08/07/17 20:03 Pulse Ox 99 08/07/17 20:03 Weight - Most Recent: 78.471 kg I&O - Last 24 hours: Intake & Output 08/07/17 08/07/17 08/08/17 14:59 22:59 06:59 Intake Total 360 480 Balance 360 480 Med Orders - Current: Current Medications Acetaminophen (Tylenol) 650 mg PO Q4H PRN PRN Reason: PAIN Last Admin: 08/07/17 13:44 Dose: 650 mg Benzocaine/Menthol (Dermoplast Pain Relief [place]) 0 gm TOP ASDIRECTED PRN PRN Reason: Perineal Comfort Measure Docusate Sodium (Colace) 100 mg PO BID PRN PRN Reason: Constipation Emollient Ointment (Lansinoh Hpa) 0 gm TOP ASDIRECTED PRN PRN Reason: Sore Nipples Last Admin: 08/07/17 11:28 Dose: 1 applicful Oxytocin/Lactated Ringer's (Pitocin In Lr 10 Units/1,000 Ml) 10 unit in 1,000 mls @ 500 mls/hr IV TITRATE SARBJIT; Protocol Ibuprofen (Motrin) 600 mg PO Q6H PRN PRN Reason: Pain Last Admin: 08/07/17 16:23 Dose: 600 mg Witch Celi (Tucks) 1 pad TOP ASDIRECTED PRN PRN Reason: Hemorrhoid pain Discontinued Medications Oxytocin/Lactated Ringer's (Pitocin In Lr 20 Units/1,000 Ml) Confirm Administered Dose 20 unit in 1,000 mls @ as directed IV .STK-MED ONE Stop: 08/06/17 12:34 Last Admin: 08/06/17 12:36 Dose: 500 mls/hr
[2017-08-08 09:09] VITALS: BP 113/66
== END 2017-08-08 17:04 | disposition home or self-care (01) | DRG 561 ==
LOC: JD.OB 12:16
PROVIDERS: ADMIT Obstetrics & Gynecology; ATTEND Obstetrics & Gynecology
DX: Z39.0 Encounter for care and examination of mother immediately after delivery (principal)
CPT/HCPCS: 36415; 82565; 84450; 84460; 85027; 86592; A9270-GY; J2590

== ENCOUNTER 2018-08-18 20:14 | Emergency (ER) | payer BC ==
[2018-08-18 21:01] VITALS: BP 122/93
[2018-08-18] MEDS ORDERED: Ketorolac 60 MG/2 ML SDV IM ONE ×2 (22:03→22:15)
--- NOTE | 2018-08-18 22:37 | EDM.PDOC ---
ED HPI GENERAL MEDICAL PROBLEM - General Chief Complaint: FABRIC CUTTER Problem Stated Complaint: POSSIBLE MISCARRIGE BLEEDING CLOT Time Seen by Provider: 08/18/18 21:32 Source of Information: Reports: Patient History Limitations: Reports: No Limitations - History of Present Illness INITIAL COMMENTS - FREE TEXT/NARRATIVE: 23-year-old female presents for evaluation and treatment of heavy vaginal bleeding, cramping and possible miscarriage. Patient was last menstrual period was 5-5-19. She's not taken any at-home test but feels that she is likely miscarrying. She states that she has had several pregnancies and has 3 living children; . Last was approximately 1 year ago. Her OB/ DIRECTOR OF LITIGATION providers Dr. Barillas in [place]. There patient reports that about 2 hours prior to arrival in the ER has been increasing heavy vaginal bleeding has been passing large clots. She also reports here, cramping. She reports associated symptoms of lightheadedness but no syncope. States that she soaks through 2 regular tampons and one super tampon in 2 hours. Patient reports she was previously on OCPs but about a month ago she thought she was on vacation she has not yet restarted them. Blood type is A+. Onset: Today Pelvic Pain Score (Numeric/FACES): 9 - Related Data Allergies Allergy/AdvReac Type Severity Reaction Status Date / Time hydromorphone [From Dilaudid] Allergy Hives Verified 08/18/18 20:54 promethazine [From Phenergan] Allergy Hallucinati Verified 08/18/18 20:54 ons Home Meds: Home Meds . 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 2011 - 35 wk PTL. 2012. 2014 - 38 wk . 2016. 2017 - 36 wk Psychiatric History: Reports: Addiction, Anxiety, Depression - Past Surgical History Female Surgical History: Reports: D&C Social & Family History - Family History Family Medical History: Noncontributory - Tobacco Use Smoking Status *Q: Current Every Day Smoker Years of Tobacco use: 9 Packs/Tins Daily: 0.2 - Caffeine Use Caffeine Use: Reports: None Caffeine Use Comment: Coffee daily, soda every other day, tea sometimes. 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 Denies: Dysuria Musculoskeletal: Reports: Back Pain (Low back) Neurological: Denies: Syncope ED EXAM - Physical Exam Exam: See Below Exam Limited By: No Limitations General Appearance: Alert, WD/WN, No Apparent Distress Respiratory/Chest: No Respiratory Distress, Lungs Clear, Normal Breath Sounds Cardiovascular: Normal Peripheral Pulses, Regular Rate, Rhythm, No Murmur GI/Abdominal Exam: Normal Bowel Sounds, Soft, Non-Tender Neurological: Alert, Oriented, Normal Cognition Psychiatric: Normal Affect, Normal Mood Skin Exam: Warm, Dry, Normal Color Course - Vital Signs Last Recorded V/S: Last Vital Signs Temp 97.3 F 08/18/18 20:58 Pulse 81 08/18/18 20:58 Resp 16 08/18/18 20:58 BP 122/93 H 08/18/18 20:58 Pulse Ox 99 08/18/18 20:58 - Orders/Labs/Meds Labs: Laboratory Tests 08/18/18 08/18/18 08/18/18 Range/Units 21:17 21:17 22:38 WBC 10.77 H (3.98-10.04) K/mm3 RBC 4.17 (3.98-5.22) M/mm3 Hgb 12.7 D (11.2-15.7) gm/L Hct 37.9 (34.1-44.9) % MCV 90.9 D (79.4-94.8) fl MCH 30.5 (25.6-32.2) pg MCHC 33.5 (32.2-35.5) g/dl RDW Std Deviation 47.6 H (36.4-46.3) fL Plt Count 394 H D (182-369) K/mm3 MPV 9.3 L (9.4-12.3) fl Neut % (Auto) 64.1 (34.0-71.1) % Lymph % (Auto) 26.3 (19.3-51.7) % [place] % (Auto) 7.0 (4.7-12.5) % Eos % (Auto) 2.1 (0.7-5.8) Baso % (Auto) 0.2 (0.1-1.2) % Neut # (Auto) 6.91 H (1.56-6.13) K/mm3 Lymph # (Auto) 2.83 (1.18-3.74) K/mm3 [place] # (Auto) 0.75 H (0.24-0.36) K/mm3 Eos # (Auto) 0.23 (0.04-0.36) K/mm3 Baso # (Auto) 0.02 (0.01-0.08) K/mm3 HCG, Qual Negative (NEGATIVE) Urine Color [place] H (Yellow) Urine Appearance Turbid H (Clear) Urine pH 6.0 (5.0-8.0) Ur Specific [place] > or = 1.030 (1.005-1.030) Urine Protein 2+ H (Negative) Urine Glucose (UA) Negative (Negative) Urine Ketones 1+ H (Negative) Urine Occult Blood 3+ H (Negative) Urine Nitrite Negative (Negative) Urine Bilirubin 1+ H (Negative) Urine Urobilinogen 1.0 (0.2-1.0) Ur Leukocyte Esterase Trace H (Negative) Urine RBC 50-75 H (0-5) /hpf Urine WBC 0-5 (0-5) /hpf Ur Epithelial Cells 0-5 (0-5) /hpf Urine Bacteria Few (FEW) /hpf Urine Mucus Few (FEW) /hpf Meds: Medications Discontinued Medications Generic Name Dose Route Start Last Admin Trade Name Freq PRN Reason Stop Dose Admin Diphenhydramine HCl 25 mg 08/18/18 22:54 08/18/18 23:05 Benadryl PO 08/18/18 22:55 25 mg ONETIME ONE Administration Ketorolac Tromethamine 60 mg 08/18/18 22:03 08/18/18 22:21 Toradol IM 08/18/18 22:04 Not Given ONETIME ONE Ketorolac Tromethamine 60 mg 08/18/18 22:15 08/18/18 22:16 Toradol IM 08/18/18 22:16 60 mg ONETIME ONE Administration Oxycodone/Acetaminophen 1 tab 08/18/18 22:52 08/18/18 23:04 Percocet 325-5 Mg PO 08/18/18 22:53 1 tab ONETIME ONE Administration - Re-Assessments/Exams Free Text/Narrative Re-Assessment/Exam: 08/18/18 22:54 Checked on the patient. Reviewed her labs with her. Still has some pain. Will give a by mouth Percocet as well as some Benadryl she is allergy to Dilaudid, hives. Discussed with the patient and she is agreeable to this. Encouraged her to pump and dump as she is still at this time. Will discharge home at this time. Discharge instructions as documented. Departure - Departure Time of Disposition: 22:55 Disposition: Home, Self-Care 01 Condition: Good Clinical Impression: Dysmenorrhea, Menorrhagia - Discharge Information *PRESCRIPTION DRUG MONITORING PROGRAM REVIEWED*: No *COPY OF PRESCRIPTION DRUG MONITORING REPORT IN PATIENT MARIBEL: No Referrals: PCP,None [Primary Care Provider] - Forms: ED Department Discharge Additional Instructions: you were given medication in the ER that can affect your ability to drive and operate machinery. Do not drive or operate machinery within 10 hours of taking prescription narcotic pain medication. continue to take [id number] Tylenol or Motrin as needed for pain. Make sure you are drinking plenty of fluids. May restart your control pills. Follow-up with your FABRIC CUTTER if your symptoms persist Please return the ER if your symptoms change or worsen.
[2018-08-18] MEDS ORDERED: Acetaminophen/oxyCODONE 325-5 MG Tab PO ONE (22:52)
[2018-08-18] MEDS ORDERED: diphenhydrAMINE 25 MG Cap PO ONE (22:54)
== END 2018-08-18 23:07 | disposition home or self-care (01) ==
LOC: JD.ED 20:14
DX: N94.6 Dysmenorrhea, unspecified (principal); N92.0 Excessive and frequent menstruation with regular cycle; F17.210 Nicotine dependence, cigarettes, uncomplicated; Z88.8 Allergy status to other drugs, medicaments and biological substances
CPT/HCPCS: 36415; 81001; 84703; 85025; 96372; 99284; A9270; J1885; 99283

== ENCOUNTER 2019-01-01 09:40 | Emergency (ER) | payer BC ==
[2019-01-01 10:01] VITALS: BP 130/117; PULSE 82
[2019-01-01] MEDS ORDERED: Sodium Chloride 0.9% 10 ML Syringe FLUSH PRN (10:03)
[2019-01-01] MEDS ORDERED: Sodium Chloride 0.9% 1,000 ML IV ONE (10:08)
--- NOTE | 2019-01-01 10:20 | EDM.PDOC ---
ED HPI GENERAL MEDICAL PROBLEM - General Chief Complaint: Abdominal Pain Stated Complaint: 7-9 WEEKS PREG, CRAMPING Time Seen by Provider: 01/01/19 09:56 Source of Information: Reports: Patient, RN Notes Reviewed History Limitations: Reports: No Limitations - History of Present Illness INITIAL COMMENTS - FREE TEXT/NARRATIVE: Patient is a 23-year-old female who presents to the ED for evaluation of abdominal cramping and . The patient is complaining of severe lower abdominal pain and back pain, that started this morning. She notes she is roughly 7-9 weeks , her last menstrual period was about November 10 and this was normal for her and lasted 4 days. She has not seen an FUEL SYSTEM MAINTENANCE WORKER for this yet, however she states she will see Dr. Deepali Cee. 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 Patient complains of feeling faint and dizzy , but she denies any sort of vaginal bleeding, or vaginal discharge. She denies any nausea or vomiting, chest pain, or shortness of breath. She states that the pain is sharp in nature, and comes and goes. She states that the pain she is feeling feels as if " she is being punched in the perineum". Lower Abdomen Pain Score (Numeric/FACES): 7 - Related Data Allergies Allergy/AdvReac Type Severity Reaction Status Date / Time hydromorphone [From Dilaudid] Allergy Hives Verified 01/01/19 10:01 promethazine [From Phenergan] Allergy Hallucinati Verified 01/01/19 10:01 ons Home Meds: Home Meds Acetaminophen/oxyCODONE [Percocet 325-5 MG] 1 each PO Q6H PRN #2 tab 01/01/19 [ Rx] Past Medical History - Past Health History Medical/Surgical History: Denies Medical/Surgical History HEENT History: Reports: Impaired Vision Other HEENT History: glasses Gastrointestinal History: Reports: GERD, Inflammatory Bowel Disease Genitourinary History: Reports: Renal Calculus, UTI, Recurrent, Other (See Below ) Other Genitourinary History: "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 2012 - 35 wk PTL. 2012. 2014 38 wk . 2016. 2017 - 36 wk Musculoskeletal History: Reports: Back Pain, Chronic Neurological History: Reports: Concussion Other Neuro History: past Psychiatric History: Reports: Addiction, Anxiety, Depression Hematologic History: Reports: Iron Deficiency - Infectious Disease History Infectious Disease History: Reports: Chicken Pox - Past Surgical History Female Surgical History: Reports: D&C Social & Family History - Family History Family Medical History: Noncontributory - Caffeine Use Caffeine Use: Reports: Coffee Caffeine Use Comment: Coffee daily, soda every other day, tea sometimes. 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 Denies : Constipation, Diarrhea, Nausea, Vomiting : Reports: Other (no vaginal bleeding). Denies: Discharge, Dysuria, Frequency , Urgency Musculoskeletal: Reports: Back Pain (lower back pain) Skin: Reports: No Symptoms Neurological: Reports: No Symptoms Psychiatric: Reports: No Symptoms Hematologic/Lymphatic: Reports: No Symptoms ED EXAM, RENAL/ - Physical Exam Exam: See Below Exam Limited By: No Limitations General Appearance: Alert, WD/WN, No Apparent Distress Respiratory/Chest: No Respiratory Distress, Lungs Clear, Normal Breath Sounds, No Accessory Muscle Use, Chest Non-Tender Cardiovascular: Normal Peripheral Pulses, Regular Rate, Rhythm, No Murmur (Female) Exam: Normal External Exam, Normal Speculum Exam (she had mild tenderness to left side when I inserted the speculum), Adnexal Tenderness (left sided), Vaginal Discharge (small amounts of clumpy white discharge noted in vaginal vault). No: Cervical Discharge, Cervical Fluid, Vaginal Bleeding Back Exam: Normal Inspection, Full Range of Motion Extremities: Normal Inspection, Normal Capillary Refill Neurological: Alert, Oriented, Normal Cognition, No Motor/Sensory Deficits Psychiatric: Normal Affect, Normal Mood Skin Exam: Warm, Dry, Intact, Normal Color, No Rash Course - Vital Signs Last Recorded V/S: Last Vital Signs Temp 97.6 F 01/01/19 09:56 Pulse 82 01/01/19 09:56 Resp 16 01/01/19 09:56 BP 130/117 H 01/01/19 09:56 Pulse Ox 97 01/01/19 09:56 - Orders/Labs/Meds Orders: Active Orders 24 hr Category Date Time Status Peripheral IV Care [RC] . DIRECTED Care 01/01/19 10:04 Ordered Sodium Chloride 0.9% [Saline Flush] Med 01/01/19 10:03 Ordered 10 ml FLUSH ASDIRECTED PRN Peripheral IV Insertion Adult [OM.PC] Stat Oth 01/01/19 10:04 Ordered Medication Orders Sodium Chloride (Saline Flush) 10 ml FLUSH ASDIRECTED PRN PRN Reason: Keep Vein Open Labs: Laboratory Tests 01/01/19 01/01/19 01/01/19 Range/Units 10:18 10:36 10:36 WBC 8.87 (3.98-10.04) K/mm3 RBC 4.39 (3.98-5.22) M/mm3 Hgb 13.2 (11.2-15.7) gm/dl Hct 40.1 (34.1-44.9) % MCV 91.3 (79.4-94.8) fl MCH 30.1 (25.6-32.2) pg MCHC 32.9 (32.2-35.5) g/dl RDW Std Deviation 47.6 H (36.4-46.3) fL Plt Count 314 D (182-369) K/mm3 MPV 9.3 L (9.4-12.3) fl Neut % (Auto) 67.9 (34.0-71.1) % Lymph % (Auto) 23.7 (19.3-51.7) % [place] % (Auto) 6.2 (4.7-12.5) % Eos % (Auto) 1.9 (0.7-5.8) Baso % (Auto) 0.2 (0.1-1.2) % Neut # (Auto) 6.02 (1.56-6.13) K/mm3 Lymph # (Auto) 2.10 (1.18-3.74) K/mm3 [place] # (Auto) 0.55 H (0.24-0.36) K/mm3 Eos # (Auto) 0.17 (0.04-0.36) K/mm3 Baso # (Auto) 0.02 (0.01-0.08) K/mm3 HCG, Qual Positive H (NEGATIVE) HCG, Quant mIU/mL Urine Color Yellow (Yellow) Urine Appearance Clear (Clear) Urine pH 6.0 (5.0-8.0) Ur Specific [place] 1.015 (1.005-1.030) Urine Protein Negative (Negative) Urine Glucose (UA) Negative (Negative) Urine Ketones 1+ H (Negative) Urine Occult Blood Negative (Negative) Urine Nitrite Negative (Negative) Urine Bilirubin Negative (Negative) Urine Urobilinogen 0.2 (0.2-1.0) Ur Leukocyte Esterase Negative (Negative) Urine RBC Not seen (0-5) /hpf Urine WBC 0-5 (0-5) /hpf Ur Squamous Epith Cells 0-5 (0-5) /hpf Urine Bacteria Few (FEW) /hpf Urine Mucus Few (FEW) /hpf Blood Type Gel Antibody Screen 01/01/19 01/01/19 Range/Units 10:36 10:36 WBC (3.98-10.04) K/mm3 RBC (3.98-5.22) M/mm3 Hgb (11.2-15.7) gm/dl Hct (34.1-44.9) % MCV (79.4-94.8) fl MCH (25.6-32.2) pg MCHC (32.2-35.5) g/dl RDW Std Deviation (36.4-46.3) fL Plt Count (182-369) K/mm3 MPV (9.4-12.3) fl Neut % (Auto) (34.0-71.1) % Lymph % (Auto) (19.3-51.7) % [place] % (Auto) (4.7-12.5) % Eos % (Auto) (0.7-5.8) Baso % (Auto) (0.1-1.2) % Neut # (Auto) (1.56-6.13) K/mm3 Lymph # (Auto) (1.18-3.74) K/mm3 [place] # (Auto) (0.24-0.36) K/mm3 Eos # (Auto) (0.04-0.36) K/mm3 Baso # (Auto) (0.01-0.08) K/mm3 HCG, Qual (NEGATIVE) HCG, Quant 78109.0 mIU/mL Urine Color (Yellow) Urine Appearance (Clear) Urine pH (5.0-8.0) Ur Specific [place] (1.005-1.030) Urine Protein (Negative) Urine Glucose (UA) (Negative) Urine Ketones (Negative) Urine Occult Blood (Negative) Urine Nitrite (Negative) Urine Bilirubin (Negative) Urine Urobilinogen (0.2-1.0) Ur Leukocyte Esterase (Negative) Urine RBC (0-5) /hpf Urine WBC (0-5) /hpf Ur Squamous Epith Cells (0-5) /hpf Urine Bacteria (FEW) /hpf Urine Mucus (FEW) /hpf Blood Type A POSITIVE Gel Antibody Screen Negative Meds: Medications Generic Name Dose Route Start Last Admin Trade Name Freq PRN Reason Stop Dose Admin Sodium Chloride 10 ml 01/01/19 10:03 Saline Flush FLUSH ASDIRECTED PRN Keep Vein Open Discontinued Medications Generic Name Dose Route Start Last Admin Trade Name Freq PRN Reason Stop Dose Admin Sodium Chloride 1,000 mls @ 500 mls/hr 01/01/19 10:08 01/01/19 10:39 Normal Saline IV 01/01/19 12:07 500 mls/hr ONETIME ONE Administration - Re-Assessments/Exams Free Text/Narrative Re-Assessment/Exam: 01/01/19 10:23 Patient presents to the ED for evaluation of cramping during . Did order CBC, type and screen, urinalysis, hCG quantitative and qualitative. With some IV fluids to be given for initial management. 01/01/19 12:04 Patient labs are done, and demonstrates she is a positive, urinalysis shows no sign of UTI, CBC was within normal limits. HCG level was 44,555, which would be consistent with her suspected dates. Ultrasound report is still pending. Patient did have a little tenderness upon speculum exam, she notes this was worse on the left side, and also appreciated this with a transvaginal ultrasound exam. She states this is more of a discomfort. A wet prep was obtained, due to the white clumpy discharge noted within the vagina. 10/31/19 12:14 Ultrasound report is back, temperature is a single intrauterine gestation, at 6 weeks 4 days, with a heart rate of 119 bpm. Simple cyst within the maternal left ovary measuring 2.5 cm. This could explain her pain on the Left pelvis. 01/01/19 12:47 Wet Prep does not show a yeast on the exam, will discharge home with general recommendations, and a few tablets of Percocet for pain not relieved by Tylenol alone due to the left ovarian cyst, she will also be recommended to take some MiraLAX on a daily basis to keep her stools regular. 01/01/19 13:02 Patient requests only 2 tablets of Percocet for pain relief today. She states she will manage with Tylenol going further from here. Departure - Departure Time of Disposition: 12:48 Disposition: Home, Self-Care 01 Condition: Fair Clinical Impression: Abdominal cramping affecting Ovarian cyst Qualifiers: Laterality: left Qualified Code(s): N83.202 - Unspecified ovarian cyst, left side - Discharge Information *PRESCRIPTION DRUG MONITORING PROGRAM REVIEWED*: No *COPY OF PRESCRIPTION DRUG MONITORING REPORT IN PATIENT MARIBEL: No Prescriptions: Acetaminophen/oxyCODONE [Percocet 325-5 MG] 1 each PO Q6H PRN #2 tab PRN Reason: Pain Instructions: Abdominal Pain During , [id number], Ovarian Cyst, Easy -to-Read Referrals: Deepali Cee MD [Primary Care Provider] - Forms: ED Department Discharge Additional Instructions: You were evaluated in the ER today regarding your abdominal pain in . You did have some laboratory evaluation, and this was within normal limits, your hCG level was 44,555, your blood type is A+. Your ultrasound demonstrated a single intrauterine gestation, at 6 weeks 4 days , with a heart rate of 119 bpm. It also demonstrated a small simple cyst within the maternal left ovary, measuring 2.5 cm. This could explain part of your left sided pelvic pain. Management for ovarian cysts, include pain management. As she were , you may only take Tylenol for pain relief, you will be given a few tablets of Percocet, for pain relief not relieved by Tylenol alone, please use sparingly, as these can be addictive. Your clinical exam was also somewhat suspicious for being constipated, recommend he take MiraLAX on a daily basis to keep your stools regular. This will also help guard against constipation during opioid pain management. You should also try to increase your oral fluid intake. Please take a vitamin during this time, as these are vital for normal development. Please follow up with your FUEL SYSTEM MAINTENANCE WORKER at your next scheduled appointment. Please return to the ED at any point if your symptoms change or worsen. - My Orders Last 24 Hours: My Active Orders 01/01/19 10:03 Sodium Chloride 0.9% [Saline Flush] 10 ml FLUSH ASDIRECTED PRN 01/01/19 10:04 Peripheral IV Care [RC] . DIRECTED Peripheral IV Insertion Adult [OM.PC] Stat - Assessment/Plan Last 24 Hours: My Active Orders 01/01/19 10:03 Sodium Chloride 0.9% [Saline Flush] 10 ml FLUSH ASDIRECTED PRN 01/01/19 10:04 Peripheral IV Care [RC] . DIRECTED Peripheral IV Insertion Adult [OM.PC] Stat
--- NOTE | 2019-01-01 12:11 | US ---
First trimester obstetrical ultrasound: Multiple real-time images were obtained transvaginally. Comparison: No previous study for current . Dates: Current ultrasound: [facility] 08/23/19, gestational age 6 weeks 4 days Single intrauterine gestation is seen. Amniotic fluid volume is normal. pole and yolk sac are seen. No subchorionic hemorrhage is noted. Minimal fluid within the cul-de-sac is seen believed to be incidental. Small cyst is noted within the maternal left ovary which appears simple and measures 2.5 cm. Maternal right ovary is unremarkable. Measurements: [place]-rump length: 0.66 cm - 6 weeks 4 days Heart rate: 119 bpm Impression: 1. Single intrauterine gestation. Dates as noted above. 2. Small simple cyst within the maternal left ovary measuring 2.5 cm. 3. No complicating process is seen by ultrasound at this time. Diagnostic code #2
== END 2019-01-01 13:25 | disposition home or self-care (01) ==
LOC: JD.ED 09:40
DX: O26.891 Other specified pregnancy related conditions, first trimester (principal); R10.30 Lower abdominal pain, unspecified; O34.81 Maternal care for other abnormalities of pelvic organs, first trimester; N83.202 Unspecified ovarian cyst, left side; Z3A.01 Less than 8 weeks gestation of pregnancy; Z88.5 Allergy status to narcotic agent; Z88.8 Allergy status to other drugs, medicaments and biological substances
CPT/HCPCS: 36415; 76817; 81001; 84702; 84703; 85025; 86850; 86900; 86901; 87210; 87808; 96360; 96361; 99284; J7040

== ENCOUNTER 2019-08-03 06:56 | Inpatient (IN) | payer BC ==
[2019-08-03] MEDS ORDERED: Ondansetron 4 MG/2 ML SDV IVPUSH PRN (08:07)
[2019-08-03] MEDS ORDERED: Sodium Chloride 0.9% 10 ML Syringe FLUSH PRN (08:07)
[2019-08-03] MEDS ORDERED: Lactated Ringers 1,000 ML IV SCH (08:15)
[2019-08-03] MEDS ORDERED: Oxytocin/Lactated Ringers 10 UNIT/1,000 ML BAG IV SCH ×2 (08:15→11:45)
[2019-08-03] MEDS ORDERED: Ampicillin 2 GM in Sodium Chloride 0.9% 100 ML IV ONE (08:30)
[2019-08-03] MEDS ORDERED: Ampicillin 1 GM in Sodium Chloride 0.9% 100 ML IV SCH (12:30)
[2019-08-03] MEDS ORDERED: fentaNYL 100 MCG/2 ML SDV EPIDUR PRN (13:29)
[2019-08-03] MEDS ORDERED: Bupivacaine/fentaNYL/NS 100 ML Bag EPIDUR PRN (13:29)
[2019-08-03] MEDS ORDERED: ePHEDrine 50 MG/ML SDV IVPUSH PRN (13:29)
[2019-08-03] MEDS ORDERED: diphenhydrAMINE 50 MG/ML SDV IVPUSH PRN (13:29)
--- NOTE | 2019-08-03 16:07 | PCM.LDHP ---
L&D History of Present Illness - General Date of Service: 08/03/19 Admit Problem/Dx: Patient Status Order with Admit Dx/Problem 08/03/19 07:09 Patient Status [ADT] Routine Admission Diagnosis/Problem Admission Diagnosis/Problem Source of Information: Patient History Limitations: Reports: No Limitations - History of Present Illness Introduction:: 23 year old here at 37 weeks in active labor. - Related Data Allergies/Adverse Reactions: Allergies Allergy/AdvReac Type Severity Reaction Status Date / Time hydromorphone [From Dilaudid] Allergy Hives Verified 08/03/19 09:11 Home Medications: Home Meds Vits #93/Iron Fum/FA [ Formula Tablet] 1 tab PO DAILY 01/19/19 [History] Past Medical History - Past Health History Medical/Surgical History: Denies Medical/Surgical History HEENT History: Reports: Impaired Vision Other HEENT History: glasses Gastrointestinal History: Reports: Inflammatory Bowel Disease Genitourinary History: Reports: Renal Calculus, Other (See Below) Other Genitourinary History: "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 2011 - 35 wk PTL. 2012. 2014 - 38 wk . 2016. 2017 - 36 wk Musculoskeletal History: Reports: Back Pain, Chronic Neurological History: Reports: Concussion Other Neuro History: past Psychiatric History: Reports: Addiction, Anxiety, Depression Hematologic History: Reports: Iron Deficiency - Infectious Disease History Infectious Disease History: Reports: Chicken Pox - Past Surgical History Female Surgical History: Reports: D&C Social & Family History - Family History Family Medical History: Noncontributory - Tobacco Use Smoking Status *Q: Former Smoker Used Tobacco, but Quit: No Second Hand Smoke Exposure: No - Caffeine Use Caffeine Use: Reports: Soda Caffeine Use Comment: Coffee daily, soda every other day, tea sometimes. - Recreational Drug Use Recreational Drug Use: Yes Drug Use in Last 12 Months: No Recreational Drug Type: Reports: Other (see below) Other Recreational Drug Type: [place] Recreational Drug Use Frequency: Not Used In Over 1 Year - Living Situation & Occupation Living situation: Reports: (She is a [id number] mom.) Occupation: Unemployed H&P Review of Systems - Review of Systems: Review Of Systems: See Below General: Reports: No Symptoms HEENT: Reports: No Symptoms Pulmonary: Reports: No Symptoms Cardiovascular: Reports: No Symptoms Gastrointestinal: Reports: No Symptoms Genitourinary: Reports: No Symptoms Musculoskeletal: Reports: No Symptoms Skin: Reports: No Symptoms Psychiatric: Reports: No Symptoms Neurological: Reports: No Symptoms Hematologic/Lymphatic: Reports: No Symptoms Immunologic: Reports: No Symptoms L&D Exam - Exam Exam: See Below - Vital Signs Vital Signs: Last Vital Signs Temp 36.2 C 08/03/19 07:09 Pulse 97 08/03/19 07:09 Resp 14 08/03/19 07:09 BP 121/82 08/03/19 07:09 Pulse Ox 95 08/03/19 07:09 Weight: 81.329 kg - OB Specific Contraction Intensity: Moderate Movement: Active Heart Tones: Present Heart Rate (FHR) Variability: Moderate (6-25 bmp) Presentation: Vertex - Bartholomew Score Bartholomew Score Cervix Position: Midposition Bartholomew Score Consistency: Soft Bartholomew Score Effacement: 31-50% Bartholomew Score Dilation: 3-4 cm Bartholomew Score 's Station: -2 Bartholomew Score Total: 7 - Exam General: Alert, Oriented HEENT: PERRLA, Conjunctiva Clear, EACs Clear, EOMI, Hearing Intact, Mucosa Moist & Red Level, Nares Patent, Normal Nasal Septum, Posterior Pharynx Clear, TMs Clear Neck: Supple, Trachea Midline Lungs: Clear to Auscultation, Normal Respiratory Effort Cardiovascular: Regular Rate, Regular Rhythm GI/Abdominal Exam: Normal Bowel Sounds, Soft, Non-Tender, No Organomegaly, No Distention, No Abnormal Bruit, No Mass, Pelvis Stable Genitourinary: Normal external exam, Normal bimanual exam, Normal speculum exam Back Exam: Normal Inspection, Full Range of Motion Extremities: Normal Inspection, Normal Range of Motion, Non-Tender, No Pedal Edema, Normal Capillary Refill Skin: Warm, Dry, Intact Neurological: Cranial Nerves Intact, Reflexes Equal Bilateral Psychiatric: Alert, Normal Affect, Normal Mood - Patient Data Lab Results Last 24 hrs: Laboratory Results - last 24 hr 08/03/19 08/03/19 08/03/19 Range/Units 08:22 08:45 08:45 WBC 12.24 H (3.98-10.04) K/mm3 RBC 3.72 L (3.98-5.22) M/mm3 Hgb 11.4 D (11.2-15.7) gm/dl Hct 35.5 (34.1-44.9) % MCV 95.4 H D (79.4-94.8) fl MCH 30.6 (25.6-32.2) pg MCHC 32.1 L (32.2-35.5) g/dl RDW Std Deviation 47.1 H (36.4-46.3) fL Plt Count 259 (182-369) K/mm3 MPV 9.8 (9.4-12.3) fl Neut % (Auto) 71.7 H (34.0-71.1) % Lymph % (Auto) 19.9 (19.3-51.7) % Thomas % (Auto) 7.4 (4.7-12.5) % Eos % (Auto) 0.5 L (0.7-5.8) Baso % (Auto) 0.1 (0.1-1.2) % Neut # (Auto) 8.79 H (1.56-6.13) K/mm3 Lymph # (Auto) 2.43 (1.18-3.74) K/mm3 Thomas # (Auto) 0.90 H (0.24-0.36) K/mm3 Eos # (Auto) 0.06 (0.04-0.36) K/mm3 Baso # (Auto) 0.01 (0.01-0.08) K/mm3 Urine Color Light yellow (Yellow) Urine Appearance Clear (Clear) Urine pH 7.0 (5.0-8.0) Ur Specific [place] 1.020 (1.005-1.030) Urine Protein Negative (Negative) Urine Glucose (UA) Negative (Negative) Urine Ketones Negative (Negative) Urine Occult Blood Negative (Negative) Urine Nitrite Negative (Negative) Urine Bilirubin Negative (Negative) Urine Urobilinogen 0.2 (0.2-1.0) Ur Leukocyte Esterase Negative (Negative) Urine RBC Not seen (0-5) /hpf Urine WBC 0-5 (0-5) /hpf Ur Squamous Epith Cells 5-10 H (0-5) /hpf Urine Bacteria Rare (FEW) /hpf Urine Mucus Not seen (FEW) /hpf Urine Opiates Screen Negative (AGQQSP=480) Ur Buprenorphine Scrn Negative (CUTOFF=10) Ur Oxycodone Screen Negative (VPC9KF=268) Urine Methadone Screen Negative (XWIQQQ=133) Ur Propoxyphene Screen Negative (CTYUNV=241) Ur Barbiturates Screen Negative (MOQSUS=429) Ur Tricyclics Screen Negative (MFVOXX=193) Ur Phencyclidine Scrn Negative (CUTOFF=25) Ur Amphetamine Screen Negative (FQZDBR=037) U Methamphetamines Scrn Negative (YZEQTD=404) U Benzodiazepines Scrn Negative (NNPVMK=288) U Cocaine Metab Screen Negative (MRZEVU=015) U Marijuana (THC) Screen Negative (CUTOFF=50) Result Diagrams: 08/03/19 08:22 Problem List Initiated/Reviewed/Updated: Yes Orders Last 24hrs: Active Orders 24 hr Category Date Time Status Patient Status [ADT] Routine ADT 08/03/19 07:09 Active Activity as Tolerated [RC] PFP Care 08/03/19 08:07 Active Communication Order [RC] ASDIRECTED Care 08/03/19 08:07 Active Communication Order [RC] ROUTINE Care 08/03/19 13:29 Active Cooling Warming Measures [RC] ASDIRECTED Care 08/03/19 13:29 Active Heart Tones [RC] ASDIRECTED Care 08/03/19 08:07 Active Non Stress Test [RC] PER UNIT ROUTINE Care 08/03/19 07:09 Active Non Stress Test [RC] PER UNIT ROUTINE Care 08/03/19 08:07 Active Notify Provider [RC] ASDIRECTED Care 08/03/19 13:29 Active Notify Provider [RC] ASDIRECTED Care 08/03/19 13:29 Active Notify Provider [RC] PFP Care 08/03/19 08:07 Active Notify Provider [RC] PRN Care 08/03/19 08:07 Active Oxygen Therapy [RC] ASDIRECTED Care 08/03/19 13:29 Active Peripheral IV Care [RC] . DIRECTED Care 08/03/19 08:07 Active Pulse Oximetry [RC] ASDIRECTED Care 08/03/19 13:29 Active Vital Signs [RC] PER UNIT ROUTINE Care 08/03/19 07:09 Active Vital Signs [RC] PER UNIT ROUTINE Care 08/03/19 08:07 Active Regular Diet [DIET] Diet 08/03/19 Breakfast Active Regular Diet [DIET] Diet 08/03/19 Breakfast Active BLOOD BANK HOLD SPECIMEN [BBK] Stat Lab 08/03/19 08:07 Ordered RAPID PLASMA REAGIN,RPR [CHEM] Routine Lab 08/03/19 08:22 Received Ampicillin 1 gm Med 08/03/19 12:30 Active Sodium Chloride 0.9% [Normal Saline] 100 ml IV Q4H Bupivacaine/fentaNYL/NS [fentaNYL/Bupivacaine/NS 2 MCG- Med 08/03/19 13:29 Active 0.125% 100 ML] 100 ml EPIDUR ASDIRECTED PRN Lactated Ringers [Ringers, Lactated] 1,000 ml Med 08/03/19 08:15 Active IV ASDIRECTED Ondansetron [Zofran] Med 08/03/19 08:07 Active 4 mg IVPUSH Q4H PRN Oxytocin/Lactated Ringers [Pitocin in LR 10 Units/1,000 Med 08/03/19 08:15 Active ML] 10 unit in 1,000 ml IV .CONTINUOUS Oxytocin/Lactated Ringers [Pitocin in LR 10 Units/1,000 Med 08/03/19 11:45 Active ML] 10 unit in 1,000 ml IV TITRATE Sodium Chloride 0.9% [Saline Flush] Med 08/03/19 08:07 Active 10 ml FLUSH ASDIRECTED PRN diphenhydrAMINE [Benadryl] Med 08/03/19 13:29 Active 25 mg IVPUSH Q6H PRN ePHEDrine [ePHEDrine sulfate] Med 08/03/19 13:29 Active 5 mg IVPUSH ASDIRECTED PRN fentaNYL [Sublimaze] Med 08/03/19 13:29 Active 100 mcg EPIDUR Q3H PRN Electronic Heart Tones Ext w TOCO [WOMSER] Oth 08/03/19 08:07 Ordered Routine Electronic Heart Tones Internal [WOMSER] Per Unit Oth 08/03/19 08:07 Ordered Routine Peripheral IV Insertion Adult [OM.PC] Routine Oth 08/03/19 08:07 Ordered Resuscitation Status Routine Resus Stat 08/03/19 07:09 Ordered Medication Orders Diphenhydramine HCl (Benadryl) 25 mg IVPUSH Q6H PRN PRN Reason: pruritis Ephedrine Sulfate (Ephedrine Sulfate) 5 mg IVPUSH ASDIRECTED PRN PRN Reason: Hypotension Fentanyl (Sublimaze) 100 mcg EPIDUR Q3H PRN PRN Reason: Pain Fentanyl/Bupivacaine HCl (Fentanyl/Bupivacaine/Ns 2 Mcg-0.125% 100 Ml) 100 ml EPIDUR ASDIRECTED PRN PRN Reason: Pain Lactated Ringer's (Ringers, Lactated) 1,000 mls @ 100 mls/hr IV ASDIRECTED SARBJIT Last Admin: 08/03/19 08:27 Dose: 100 mls/hr Ampicillin Sodium 1 gm/ Sodium (Chloride) 100 mls @ 200 mls/hr IV Q4H SARBJIT Last Admin: 08/03/19 12:27 Dose: 200 mls/hr Oxytocin/Lactated Ringer's (Pitocin In Lr 10 Units/1,000 Ml) 10 unit in 1,000 mls @ 500 mls/hr IV .CONTINUOUS SARBJIT Oxytocin/Lactated Ringer's (Pitocin In Lr 10 Units/1,000 Ml) 10 unit in 1,000 mls @ 12 mls/hr IV TITRATE [facility]; Protocol Last Titration: 08/03/19 14:40 Dose: 8 munits/min, 48 mls/hr Titration: 08/03/19 12:58 Dose: 6 munits/min, 36 mls/hr Titration: 08/03/19 12:31 Dose: 4 munits/min, 24 mls/hr Admin: 08/03/19 12:03 Dose: 2 munits/min, 12 mls/hr Ondansetron HCl (Zofran) 4 mg IVPUSH Q4H PRN PRN Reason: Nausea/Vomiting Sodium Chloride (Saline Flush) 10 ml FLUSH ASDIRECTED PRN PRN Reason: Keep Vein Open Assessment/Plan Comment:: Term labor. Desires unmedicated. Anticipate . Antibiotics for GBS
--- NOTE | 2019-08-03 16:08 | PCM.SN.2 ---
- Free Text/Narrative Note: AROM clear fluid. /-3
--- NOTE | 2019-08-03 16:10 | PCM.SN.2 ---
- Free Text/Narrative Note: Stage I - Patient presented in active labor. Progressed to complete after AROM. Antibiotics for GBS Stage II - of viable male, weight pending, 8/9 APGARS at 1559. Head delivered in controlled manner over intact perineum. Body and shoulders atraumatically. To maternal abdomen. Cord clamped and cut. Positive cry. Cord blood collected. Stage III - of intact placenta. 3vc. No laceration. EBL 200
[2019-08-03] MEDS ORDERED: Witch Hazel Medicated Pads 40/Jar TOP PRN (16:43)
[2019-08-03] MEDS ORDERED: Benzocaine/Menthol 20%-0.5% Spray 56 GM Canister TOP PRN (16:43)
[2019-08-03] MEDS ORDERED: Docusate Sodium 100 MG Cap PO PRN (16:43)
[2019-08-03] MEDS: Ibuprofen 600 MG Tab PO PRN ×2 (16:59→22:44)
[2019-08-03] MEDS ORDERED: Misoprostol 200 MCG Tab ONE (17:38)
[2019-08-03] MEDS ORDERED: Misoprostol 200 MCG Tab PO ONE (17:40)
[2019-08-03] MEDS ORDERED: Misoprostol 200 MCG Tab PO SCH (17:40)
[2019-08-03] MEDS: Acetaminophen 325 MG Tab PO PRN (20:20)
[2019-08-03] MEDS ORDERED: diphenhydrAMINE 50 MG Cap PO PRN (21:44)
[2019-08-04] MEDS: Ibuprofen 600 MG Tab PO PRN (04:44)
[2019-08-04] MEDS: Acetaminophen 325 MG Tab PO PRN (09:23)
[2019-08-04 14:19] VITALS: BP 121/63; PULSE 102
== END 2019-08-04 17:13 | disposition home or self-care (01) | DRG 560 ==
LOC: JD.OBCHECK 06:56 → JD.OB 06:56 → JD.OBCHECK 07:08 → JD.OB 07:09 → OBSVTOIN 15:39 → JD.OB 16:22
PROVIDERS: ADMIT Obstetrics & Gynecology; ATTEND Obstetrics & Gynecology
PROC: 10E0XZZ Delivery of Products of Conception, External Approach (ICD-10-PCS; principal; 2019-08-03)
PROC: 10907ZC Drainage of Amniotic Fluid, Therapeutic from Products of Conception, Via Natural or Artificial Opening (ICD-10-PCS; 2019-08-03)
DX: O99.824 Streptococcus B carrier state complicating childbirth (principal); Z3A.37 37 weeks gestation of pregnancy; Z37.0 Single live birth; Z87.891 Personal history of nicotine dependence
CPT/HCPCS: 36415; 59025; 59409; 80306; 81001; 85025; 86592; A9270-GY; J0290; J2590; J7050; J7120

== ENCOUNTER 2022-06-09 12:43 | Emergency (ER) | payer SELFPAY ==
[2022-06-09] MEDS: Ketorolac 30 MG/ML SDV IM ONE (14:06)
[2022-06-09 14:12] VITALS: BP 119/74; PULSE 89
== END 2022-06-09 14:14 | disposition home or self-care (01) ==
LOC: JD.ED 12:43
DX: N10 Acute pyelonephritis (principal); N39.0 Urinary tract infection, site not specified; F17.210 Nicotine dependence, cigarettes, uncomplicated; Z88.5 Allergy status to narcotic agent
CPT/HCPCS: 81001; 87086; 87088; 87186; 96372; 99283; 99284; J1885